=== PATIENT | female | born 1985 | race African-American/Black ===

== ENCOUNTER 2017-04-15 21:51 | Emergency (ER) | payer OTHER ==
[~2017-04-15] VITALS: Ht 165.1 cm; Wt 166.0 kg
[~2017-04-15 21:51] MED LIST: "\\\"WATER PILL\\\""; ALTOPREV20 MG PO; AMOXICILLIN500 MG OR; AMOXICILLIN500 MG PO; AMOXICILLIN875 MG PO; BIRTH CONTROL; CHOLESTEROL LOWERING; CIPRO500 MG OR; DEPO-MEDROL80 MG/ML IM; ERY-TAB333 MG OR; FLEXERIL5 M1 PO; FLINTSTONES GUM1 CHW PO; HYDROCHLOROT12.5 MG PO; LIPITOR20 MG PO; LISINOPRIL5 MG PO; LORTAB5 PO; LOVASTATIN20 M1 PO; MAXALT-MLT10 MG OR; MEDDOSEPAK PO; METFORMIN500 M2 PO; NAPROSYN375 MG PO; NAPROSYN500 MG OR; NAPROSYN500 MG PO; NO; NO HOME MEDS; ORTHO TRI-CY OR; ORTHO TRI-CY PO; PRAVASTATIN SOD20 MG PO; PRENATAL1 TAB OR; PRILOSEC40 MG PO; ROBITUSSIN DM OR; SIMVASTATIN40 MG OR; TAM75CAP PO; ULTRAM50 MG OR; ZOFRAN4 MG/TAB PO; ZPAK OR
[2017-04-15] MEDS ORDERED: ATORVASTATIN CA10 MG PO (22:00)
[2017-04-15 22:37] LABS: HEMATOCRIT 33.4 % (37.0-47.0); HEMOGLOBIN 10.8 g/dl (12.0-16.0); IMMATURE GRANULOCYTES 0.2 % (0.0-1.0); MEAN CELL VOLUME 86.5 fL CALC (80.0-100.0); MEAN CORPUSCULAR HGB CONC 32.3 g/L CALC (32.0-36.0); NEUT# 3.37 thou/uL (2.00-7.15); RED BLOOD COUNT 3.86 mill/uL (4.20-5.60); RED CELL DISTRI WIDTH 12.5 % (11.5-15.5)
[2017-04-15 23:03] LABS: ALBUMIN 3.8 g/dL (3.2-5.0); ALKALINE PHOSPHATASE 68 u/l (38-126); ANION GAP 15 (6-22 (CALC)); BILIRUBIN, TOTAL 0.5 mg/dL (0.0-1.4); BUN 13 mg/dL (7-17); BUN/CREATININE RATIO 14 (12-20 (CALC)); CALCIUM 9.2 mg/dL (8.4-10.2); CARBON DIOXIDE 30 mmol/l (22-30); CHLORIDE 102 mmol/l (95-108); CREATININE 0.9 mg/dL (0.5-1.0); GFR > 60 ML/MIN (>=60 (CALC)); GFR FOR AFR.AMER. > 60 ML/MIN (>=60 (CALC)); GLUCOSE 116 mg/dL (65-105); POTASSIUM 3.6 mmol/l (3.5-5.1); SGOT/AST 24 u/l (14-36); SGPT/ALT 30 u/l (9-52); SODIUM 143 mmol/l (137-146)
[2017-04-15 23:14] LABS: MYOGLOBIN 32 ng/mL (0 - 62)
[2017-04-15] MEDS ORDERED: NAPROSYN500 MG PO (23:16)
[2017-04-15 23:26] VITALS: BP 116/64
== END 2017-04-15 23:26 | disposition home or self-care (01) | DRG 313 ==
LOC: ED 21:51
PROVIDERS: Emergency Medicine
DX: R07.89 Other chest pain (principal); I10 Essential (primary) hypertension; E11.9 Type 2 diabetes mellitus without complications; Z79.84 Long term (current) use of oral hypoglycemic drugs

== ENCOUNTER 2018-01-10 14:35 | Emergency (ER) | payer OTHER ==
[~2018-01-10] VITALS: Ht 165.1 cm; Wt 136.0 kg
[~2018-01-10 14:35] MED LIST changes: +ATORVASTATIN CA10 MG PO
[2018-01-10 15:47] LABS: BUN 13 mg/dL (7-17); BUN/CREATININE RATIO 14 (12-20 (CALC)); CARBON DIOXIDE 28 mmol/l (22-30); CHLORIDE 103 mmol/l (95-108); CREATININE 0.9 mg/dL (0.5-1.0); GFR > 60 ML/MIN (>=60 (CALC)); GFR FOR AFR.AMER. > 60 ML/MIN (>=60 (CALC)); SODIUM 139 mmol/l (137-146)
[2018-01-10 15:48] LABS: HEMATOCRIT 37.4 % (37.0-47.0); HEMOGLOBIN 11.9 g/dl (12.0-16.0); IMMATURE GRANULOCYTES 0.4 % (0.0-1.0); MEAN CORPUSCULAR HGB 26.7 pG CALC (26.0-32.0); MEAN CORPUSCULAR HGB CONC 31.8 g/L CALC (32.0-36.0); NEUT# 4.18 thou/uL (2.00-7.15); RED BLOOD COUNT 4.45 mill/uL (4.20-5.60); RED CELL DISTRI WIDTH 13.8 % (11.5-15.5)
[2018-01-10 15:57] LABS: ANION GAP 13 (6-22 (CALC)); ETHYL ALCOHOL 0 mg/dl (0-30); POTASSIUM 4.6 mmol/l (3.5-5.1)
[2018-01-10 17:05] LABS: BARBITURATES NEGATIVE (NEGATIVE); COCAINE NEGATIVE (NEGATIVE); METHADONE NEGATIVE (NEGATIVE); OXCYCODONE NEGATIVE (NEGATIVE); TETRAHYDROCANNABIONOL NEGATIVE (NEGATIVE); TRICYLIC ANTIDEPRESSANTS NEGATIVE (NEGATIVE)
[2018-01-10 17:58] VITALS: BP 133/56
== END 2018-01-10 17:58 | disposition short-term general hospital (02) | DRG 918 ==
LOC: ED 14:35
PROVIDERS: Family Medicine
DX: T39.312A Poisoning by propionic acid derivatives, intentional self-harm, initial encounter (principal)

== ENCOUNTER 2019-03-11 07:17 | Emergency (ER) | payer OTHER ==
[~2019-03-11] VITALS: Ht 165.1 cm; Wt 130.0 kg
[2019-03-11 08:00] VITALS: BP 122/77
== END 2019-03-11 08:00 | disposition home or self-care (01) ==
LOC: ED 07:17
DX: J02.0 Streptococcal pharyngitis (principal)
CPT/HCPCS: J0561

== ENCOUNTER 2019-06-21 18:10 | Emergency (ER) | payer SELFPAY ==
[~2019-06-21] VITALS: Ht 165.1 cm; Wt 150.0 kg
[2019-06-21] MEDS ORDERED: AMOXICILLIN875 MG PO (20:12)
[2019-06-21 20:40] VITALS: BP 115/60
[2019-06-21] MEDS ORDERED: no home meds (20:41)
== END 2019-06-21 20:40 | disposition home or self-care (01) | DRG 153 ==
LOC: ED 18:10
DX: J02.9 Acute pharyngitis, unspecified (principal)

== ENCOUNTER 2020-08-16 00:38 | Emergency (ER) | payer OTHER ==
[~2020-08-16] VITALS: Ht 165.1 cm; Wt 160.0 kg
[~2020-08-16 00:38] MED LIST changes: +no home meds
[2020-08-16 01:25] LABS: HEMATOCRIT 36.4 % (37.0-47.0); HEMOGLOBIN 11.2 g/dl (12.0-16.0); IMMATURE GRANULOCYTES 0.1 % (0.0-5.0); MEAN CELL VOLUME 82.7 fL CALC (80.0-100.0); MEAN CORPUSCULAR HGB 25.5 pG CALC (26.0-32.0); MEAN CORPUSCULAR HGB CONC 30.8 g/dL CAL (32.0-36.0); NEUT# 3.52 thou/uL (2.00-7.15); RED BLOOD COUNT 4.4 mill/uL (4.20-5.60); RED CELL DISTRI WIDTH 14.4 % (11.5-15.5)
[2020-08-16] MEDS ORDERED: METFORMIN HCL500 M1 PO (01:26)
[2020-08-16] MEDS ORDERED: LISINOPRIL2.5 MG PO (01:27)
[2020-08-16] MEDS ORDERED: LIPITOR10 M1 PO (01:27)
[2020-08-16] MEDS ORDERED: D31000 UNIT PO (01:28)
[2020-08-16 01:35] LABS: URINE BILIRUBIN - DIPSTICK NEGATIVE (NEGATIVE); URINE BLOOD DIPSTICK SMALL (NEGATIVE); URINE COLOR YELLOW; URINE GLUCOSE - DIPSTICK NEGATIVE (NEGATIVE); URINE KETONE NEGATIVE (NEGATIVE); URINE NITRITE - DIPSTICK NEGATIVE (Negative); URINE PROTEIN - DIPSTICK NEGATIVE (NEG-TRACE); URINE SPECIFIC GRAVITY 1.025; URINE UROBILINOGEN - DIPSTICK 0.2 E.U./dL (0.2)
[2020-08-16 01:37] LABS: ALKALINE PHOSPHATASE 81 u/l (38-126); ANION GAP 11 (6-22 (CALC)); BILIRUBIN, TOTAL 0.3 mg/dL (0.0-1.4); BUN 9 mg/dL (7-17); BUN/CREATININE RATIO 9 (12-20 (CALC)); CARBON DIOXIDE 28 mmol/l (22-30); CHLORIDE 103 mmol/l (95-108); CREATININE 0.9 mg/dL (0.5-1.0); GFR > 60 ML/MIN (>=60 (CALC)); GFR FOR AFR.AMER. > 60 ML/MIN (>=60 (CALC)); POTASSIUM 3.9 mmol/l (3.5-5.1); SGOT/AST 22 u/l (14-36); SODIUM 138 mmol/l (137-146); TOTAL PROTEIN 7.3 g/dL (6.3-8.2)
[2020-08-16 01:41] LABS: URINE LEUK ESTERASE NEGATIVE (NEGATIVE)
[2020-08-16 01:42] LABS: URINE BACTERIA FEW hpf; URINE EPITHELIAL CELLS MODERATE EPI/hpf (0-FEW); URINE MUCUS MODERATE hpf (NONE-FEW)
[2020-08-16 01:50] LABS: HCG SERUM/URINE (NEG/POS) NEGATIVE (NEGATIVE)
[2020-08-16 01:51] LABS: MYOGLOBIN 27 ng/mL (0 - 62)
[2020-08-16 02:21] VITALS: BP 119/65
[2020-08-16] MEDS ORDERED: AMOXICILLIN500 MG PO (03:00)
[2020-08-16] MEDS ORDERED: ROBITUSSIN AC10 ML PO (03:00)
== END 2020-08-16 03:15 | disposition home or self-care (01) ==
LOC: ED 00:38
PROVIDERS: Emergency Medicine
DX: J02.9 Acute pharyngitis, unspecified (principal); N39.0 Urinary tract infection, site not specified; E11.9 Type 2 diabetes mellitus without complications; I10 Essential (primary) hypertension; Z79.84 Long term (current) use of oral hypoglycemic drugs; Z20.822 Contact with and (suspected) exposure to COVID-19

== ENCOUNTER 2020-12-04 00:51 | Emergency (ER) | payer OTHER ==
[~2020-12-04] VITALS: Ht 165.1 cm; Wt 154.8 kg
[~2020-12-04 00:51] MED LIST changes: +D31000 UNIT PO; +LIPITOR10 M1 PO; +LISINOPRIL2.5 MG PO; +METFORMIN HCL500 M1 PO; +ROBITUSSIN AC10 ML PO
[2020-12-04 01:09] LABS: URINE BILIRUBIN - DIPSTICK NEGATIVE (NEGATIVE); URINE BLOOD DIPSTICK NEGATIVE (NEGATIVE); URINE COLOR YELLOW; URINE GLUCOSE - DIPSTICK NEGATIVE (NEGATIVE); URINE KETONE TRACE mg/dL (NEGATIVE); URINE LEUK ESTERASE NEGATIVE (NEGATIVE); URINE PROTEIN - DIPSTICK TRACE mg/dL (NEG-TRACE); URINE SPECIFIC GRAVITY >=1.030; URINE UROBILINOGEN - DIPSTICK 0.2 E.U./dL (0.2)
[2020-12-04 01:11] LABS: URINE NITRITE - DIPSTICK POSITIVE (Negative)
[2020-12-04 01:23] LABS: HEMATOCRIT 35.7 % (37.0-47.0); HEMOGLOBIN 10.7 g/dl (12.0-16.0); IMMATURE GRANULOCYTES 0.1 % (0.0-5.0); MEAN CELL VOLUME 81.5 fL CALC (80.0-100.0); MEAN CORPUSCULAR HGB 24.4 pG CALC (26.0-32.0); NEUT# 4.33 thou/uL (2.00-7.15); RED BLOOD COUNT 4.38 mill/uL (4.20-5.60); RED CELL DISTRI WIDTH 13.7 % (11.5-15.5)
[2020-12-04 01:39] LABS: ALBUMIN 4.2 g/dL (3.2-5.0); ALKALINE PHOSPHATASE 73 u/l (38-126); AMYLASE 79 u/l (30-110); ANION GAP 11 (6-22 (CALC)); BILIRUBIN, TOTAL 0.3 mg/dL (0.0-1.4); BUN 10 mg/dL (7-17); BUN/CREATININE RATIO 11 (12-20 (CALC)); CARBON DIOXIDE 32 mmol/l (22-30); CHLORIDE 101 mmol/l (95-108); GFR > 60 ML/MIN (>=60 (CALC)); GFR FOR AFR.AMER. > 60 ML/MIN (>=60 (CALC)); LIPASE 145 u/l (23-300); POTASSIUM 3.3 mmol/l (3.5-5.1); SGOT/AST 20 u/l (14-36); SODIUM 140 mmol/l (137-146); TOTAL PROTEIN 8.1 g/dL (6.3-8.2)
[2020-12-04 03:09] LABS: URINE BACTERIA FEW hpf; URINE RBC 0-2 RBC/hpf (0-5); URINE SQUAMOUS EPITHELIAL CELL FEW EPI/hpf (0-FEW)
[2020-12-04 03:10] VITALS: BP 106/71
== END 2020-12-04 03:15 | disposition home or self-care (01) ==
LOC: ED 00:51
DX: R00.2 Palpitations (principal); F41.9 Anxiety disorder, unspecified; E87.6 Hypokalemia; I10 Essential (primary) hypertension; E11.9 Type 2 diabetes mellitus without complications; E78.00 Pure hypercholesterolemia, unspecified; Z79.84 Long term (current) use of oral hypoglycemic drugs; R82.71 Bacteriuria